=== PATIENT | male | born 2000 | race Hispanic/Latino ===

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

== ENCOUNTER 2023-02-09 19:33 | Emergency (ER) | payer OTHER ==
[~2023-02-09] VITALS: Ht 172.7 cm; Wt 68.0 kg
[2023-02-09] MEDS ORDERED: ACETAMINOPHEN 500 MG TABLET PO ONE (20:00)
[2023-02-09] MEDS ORDERED: ONDANSETRON 4MG INJ IVP ONE (20:30)
[2023-02-09] MEDS ORDERED: 0.9%NACL 1000ML 2,052 ML IV ONE (20:30)
[2023-02-09 20:48] LABS: BASOPHILS % (AUTO) 0.6 % (0.0-5.0); EOSINOPHILS % (AUTO) 0.2 % (0.0-8.0); HEMATOCRIT 41.5 % (42-54); MEAN CORPUSCULAR HEMOGLOBIN 28.7 pg (27.0-33.0); MEAN CORPUSCULAR HGB CONC 33.5 g/dL (32.0-36.0); MEAN CORPUSCULAR VOLUME 85.7 fL (79-99); MONOCYTES % (AUTO) 8.4 % (3.0-13.0); NEUTROPHILS % (AUTO) 55.2 % (40.0-77.0); PLATELET COUNT (AUTO) 182 K/uL (130-400); RED BLOOD CELL COUNT(AUTO) 4.84 MIL/uL (4.50-6.20); RED CELL DISTRIBUTION WIDTH 13.4 % (11.0-15.5); WHITE BLOOD COUNT (AUTO) 11.8 K/uL (4.8-10.8)
[2023-02-09 20:55] LABS: APPEARANCE,URINE CLEAR (CLEAR); BILIRUBIN,URINE NEGATIVE (NEGATIVE); COLOR,URINE YELLOW (YELLOW); GLUCOSE, URINE (UA) NEGATIVE (NEGATIVE); KETONES,URINE NEGATIVE (NEGATIVE); LEUKOCYTE ESTERASE ,URINE NEGATIVE Leu/uL (NEGATIVE); NITRATE,URINE NEGATIVE (NEGATIVE); OCCULT BLOOD,URINE SMALL (NEGATIVE); PROTEIN,URINE 30 mg/dL (NEGATIVE); UROBILINOGEN,URINE 0.2 mg/dL (0.2-1.0)
[2023-02-09 21:08] LABS: ALBUMIN 2.4 g/dL (3.5-5.0); CREATININE 1.1 mg/dL (0.5-1.5); TOTAL PROTEIN, SERUM 6.6 g/dL (6.0-8.3)
[2023-02-09 21:09] LABS: BACTERIA,URINE RARE /HPF (None Seen); MUCUS,URINE RARE LPF (None Seen); RBC,URINE 0-1 /HPF (0-1)
[2023-02-09 21:13] LABS: POTASSIUM 2.9 mmol/L (3.5-5.1)
[2023-02-09] MEDS ORDERED: CEFTRIAXONE 1G VIAL IVPB SCH (21:30)
[2023-02-09] MEDS ORDERED: KCL 20 MEQ ERTAB PO SCH (21:30)
[2023-02-09] MEDS ORDERED: PENI500T2 PO (23:29)
[2023-02-09] MEDS ORDERED: ONDA22I PO (23:29)
[2023-02-09 23:53] VITALS: BP 128/74
== END 2023-02-09 23:55 | disposition home or self-care (01) ==
LOC: EDH 19:33
DX: J02.0 Streptococcal pharyngitis (principal); E87.6 Hypokalemia; R11.0 Nausea; R50.9 Fever, unspecified; Z20.822 Contact with and (suspected) exposure to COVID-19
CPT/HCPCS: 99284; 96365; 87635; 96361; 96375; 82550; 80053; 85025; 87040 ×2; 87088; 87880; 87804 ×2; 83605 ×2; 81001; 36415; C9803; J7030; J0696; J2405